=== PATIENT | male | born 1950 ===

== ENCOUNTER 2021-02-21 14:36 | Emergency (ER) | payer MEDICARE, BC ==
--- NOTE | 2021-02-21 15:04 | EDM.PDOC ---
ED HPI GENERAL MEDICAL PROBLEM - General Chief Complaint: Upper Extremity Injury/Pain Stated Complaint: FISH HOOK Time Seen by Provider: 02/21/21 14:45 - History of Present Illness INITIAL COMMENTS - FREE TEXT/NARRATIVE: Pt comes in with a fish hook in the Rt distal index finger. Happened while fishing today, when a fish jumped while unhooking it. - Related Data Allergies Allergy/AdvReac Type Severity Reaction Status Date / Time Fish Containing Products Allergy Hives Verified 02/21/21 14:42 peanut Allergy Hives Verified 02/21/21 14:42 Home Meds: Home Meds Albuterol [Ventolin 2 MG/5 ML] 0.4 mg PO Q8H PRN 02/21/21 [History] Aspirin 81 mg PO DAILY 02/21/21 [History] Fluticasone Propion/Salmeterol [Advair 250-50 Diskus] 1 each IH DAILY 02/21/21 [History] Review of Systems - Review of Systems Review Of Systems: Comprehensive ROS is negative, except as noted in HPI. Skin: Reports: Other (fish hook to finger.) ED EXAM, GENERAL - Physical Exam Exam: See Below Extremities: Other (Pt has 2 treble hook in the distal index finger. One hook is almost thru the skin. No bleeding at this time.) ED TRAUMA EXTREMITY PROCEDURES - Foreign Body Removal Consent Obtained: Patient Course - Vital Signs Last Recorded V/S: Last Vital Signs Temp 98.3 F 02/21/21 14:48 Pulse 98 02/21/21 14:48 Resp 18 02/21/21 14:48 BP 150/89 H 02/21/21 14:48 Pulse Ox 95 02/21/21 14:48 - Re-Assessments/Exams Free Text/Narrative Re-Assessment/Exam: 02/21/21 15:01 Alcohol was used to clean the skin. Then 1 % Lidocaine was used locally for anesthesia, using gerald 1.5 ml. Then using the string / yank method the hooks were both removed in one attempt. Pt tolerated the procedure well. Nursing staff then soaked the finger for a few minutes, then used Abx ointment and a band- aid. He is to keep it covered for 2-3 days. Monitor for infection. We did discuss an oral Abx, but pt refused. Follow up prn. Departure - Departure Time of Disposition: 15:00 Disposition: Home, Self-Care 01 Condition: Good Clinical Impression: Fish hook injury of finger of right hand - Discharge Information *PRESCRIPTION DRUG MONITORING PROGRAM REVIEWED*: No *COPY OF PRESCRIPTION DRUG MONITORING REPORT IN PATIENT BEATRIZ: No Referrals: PCP,None [Primary Care Provider] - Additional Instructions: Monitor for infection. Keep covered for 2-3 days. Follow up as needed. Sepsis Event Note (ED) - Evaluation Sepsis Screening Result: No Definite Risk - Focused Exam Vital Signs: Vital Signs Temp Pulse Resp BP Pulse Ox 02/21/21 14:48 98.3 F 98 18 150/89 H 95
== END 2021-02-21 15:05 | disposition home or self-care (01) ==
LOC: LB.ED 14:36
DX: S60.450A Superficial foreign body of right index finger, initial encounter (principal); Z91.013 Allergy to seafood; Z91.010 Allergy to peanuts; Z79.82 Long term (current) use of aspirin; W45.8XXA Other foreign body or object entering through skin, initial encounter
CPT/HCPCS: 99283